=== PATIENT | female | born 1990 | race Caucasian/White ===

== ENCOUNTER 2018-01-04 08:00 | Outpatient (CLI) | payer BC, OTHER | END 2018-01-04 08:01 | LOC: LAB.R 08:00 | PROVIDERS: ATTEND Registered Nurse | DX: Z11.3 Encounter for screening for infections with a predominantly sexual mode of transmission (principal) | CPT/HCPCS: 87491; 87591 ==

== ENCOUNTER 2019-11-09 11:59 | Outpatient (CLI) | payer OTHER | END 2019-11-09 12:00 | disposition home or self-care (01) | LOC: COV 11:59 | PROVIDERS: ATTEND Family Medicine | DX: Z01.84 Encounter for antibody response examination (principal) ==

== ENCOUNTER 2023-09-22 08:00 | Outpatient (CLI) | payer OTHER | END 2023-09-22 23:59 | disposition home or self-care (01) | LOC: LAB.N 08:00 | PROVIDERS: ATTEND Physician Assistant Medical | DX: R07.0 Pain in throat (principal) | CPT/HCPCS: 87070 ==